=== PATIENT | male | born 1955 | race Two or more races ===

== ENCOUNTER → 2016-08-13 | Outpatient (REF) | payer OTHER | END | disposition home or self-care (01) | LOC: M LAB REF 12:26 | PROVIDERS: ATTEND Internal Medicine | DX: R22.1 Localized swelling, mass and lump, neck (principal) ==

== ENCOUNTER → 2016-10-21 | Outpatient (CLI) | payer OTHER | LOC: M WUC 10:40 | PROVIDERS: ATTEND Nurse Practitioner Family | DX: Z12.5 Encounter for screening for malignant neoplasm of prostate (principal) | CPT/HCPCS: 36415; G0103 ==

== ENCOUNTER → 2017-01-15 | Outpatient (REF) | payer OTHER | LOC: M LABDRAW1 15:51 | PROVIDERS: ATTEND Nurse Practitioner Family | DX: N52.9 Male erectile dysfunction, unspecified (principal) ==

== ENCOUNTER → 2017-01-16 | Outpatient (CLI) | payer BC, OTHER | LOC: M SMT PRO 08:27 | PROVIDERS: ATTEND Urology | DX: N52.9 Male erectile dysfunction, unspecified (principal) ==

== ENCOUNTER → 2017-01-27 | Outpatient (REF) | payer OTHER ==
[2017-01-27 20:16] LABS: FREE T4 1.05 NG/DL (0.76-1.46)
== END ==
LOC: M LABDRAW1 17:24
PROVIDERS: ATTEND Internal Medicine Endocrinology, Diabetes & Metabolism
DX: E06.3 Autoimmune thyroiditis (principal)

== ENCOUNTER → 2017-02-18 | Outpatient (REF) | payer OTHER ==
[2017-02-22 00:07] LABS: TESTOSTERONE %FREE+WEAKLY BOUN 21.3 % (9.0-46.0)
== END ==
LOC: M LAB REF 17:00
PROVIDERS: ATTEND Internal Medicine
DX: R22.1 Localized swelling, mass and lump, neck (principal); E29.1 Testicular hypofunction

== ENCOUNTER → 2017-05-22 | Outpatient (REF) | payer OTHER | LOC: M LAB REF 17:38 | PROVIDERS: ATTEND Internal Medicine | DX: R22.1 Localized swelling, mass and lump, neck (principal); N52.01 Erectile dysfunction due to arterial insufficiency ==

== ENCOUNTER → 2017-08-26 | Outpatient (REF) | payer OTHER ==
[2017-08-26 14:29] LABS: TESTOSTERONE 374 NG/DL (241-827)
== END ==
LOC: M LAB REF 13:46
DX: N52.9 Male erectile dysfunction, unspecified (principal)

== ENCOUNTER → 2017-12-30 | Outpatient (REF) | payer OTHER ==
[2018-01-01 15:42] LABS: TESTOSTERONE 287 NG/DL (241-827)
== END ==
LOC: M LAB REF 13:48
DX: N52.9 Male erectile dysfunction, unspecified (principal)
CPT/HCPCS: 84403

== ENCOUNTER → 2019-01-05 | Outpatient (REF) | payer OTHER ==
[2019-01-05 15:39] LABS: FREE T4 1.14 NG/DL (0.76-1.46); THYROID STIMULATING HORMONE 0.815 uIU/ML (0.358-3.740)
== END ==
LOC: M LABDRAW1 11:22
PROVIDERS: ATTEND Internal Medicine Endocrinology, Diabetes & Metabolism
DX: E06.3 Autoimmune thyroiditis (principal)

== ENCOUNTER → 2019-03-30 | Outpatient (CLI) | payer OTHER | LOC: M WUC 12:09 | PROVIDERS: ATTEND Internal Medicine Cardiovascular Disease | DX: I11.9 Hypertensive heart disease without heart failure (principal) ==

== ENCOUNTER → 2019-07-14 | Outpatient (REF) | payer OTHER | LOC: M LAB REF 13:15 | PROVIDERS: ATTEND Internal Medicine | DX: M10.9 Gout, unspecified (principal) ==

== ENCOUNTER → 2019-10-28 | Outpatient (REF) | payer MEDICARE, OTHER ==
[2019-10-28 16:21] LABS: FREE T4 1.14 NG/DL (0.76-1.46); THYROID STIMULATING HORMONE 1.62 uIU/ML (0.358-3.740)
== END ==
LOC: M LABDRAW1 14:30
PROVIDERS: ATTEND Internal Medicine Endocrinology, Diabetes & Metabolism
DX: E06.3 Autoimmune thyroiditis (principal)

== ENCOUNTER → 2020-09-26 | Outpatient (REF) | payer MEDICARE, OTHER | LOC: M LABSMT 15:09 | PROVIDERS: ATTEND Nurse Practitioner Women's Health | DX: Z12.5 Encounter for screening for malignant neoplasm of prostate (principal) | CPT/HCPCS: 36415; G0103 ==

== ENCOUNTER → 2021-10-04 | Outpatient (CLI) | payer MEDICARE, BC, OTHER | LOC: M PLALAB 13:19 | PROVIDERS: ATTEND Nurse Practitioner Women's Health | DX: Z12.5 Encounter for screening for malignant neoplasm of prostate (principal) | CPT/HCPCS: 36415; G0103 ==

== ENCOUNTER → 2022-07-02 | Outpatient (CLI) | payer MEDICARE, BC, OTHER ==
[~2022-07-02] MED LIST: ACET1TAB55 PO; ACET650T61 PO; ASPI-255 PO; ATOR1TAB19 PO; COQ-100C5 PO; D-50CAP PO; ECOT81TA5 PO; GLIP5TAB20 PO; JARD1TAB3 PO; LEVO150T7 PO; LOSA100T45 PO; METF-838 PO; SYNT175T2 PO
[2022-07-02 17:46] LABS: HEMATOCRIT 46.3 % (42.0-52.0); MEAN CORPUSCULAR HEMOGLOBIN 29.9 pg (27.0-33.0); MEAN CORPUSCULAR HGB CONC 32.4 g/dl (32.0-36.5); MEAN CORPUSCULAR VOLUME 92.4 fl (80.0-96.0); PLATELET COUNT, AUTOMATED 144 10^3/uL (150-450); RED BLOOD COUNT 5.01 10^6/uL (4.30-6.10); WHITE BLOOD COUNT 6.2 10^3/uL (4.0-10.0)
[2022-07-02 18:12] LABS: CARBON DIOXIDE LEVEL 26 MMOL/L (20-31); CHLORIDE LEVEL 103 MMOL/L (98-107); SODIUM LEVEL 140 MMOL/L (136-145)
[2022-07-02 18:17] LABS: CALCIUM LEVEL 9.9 MG/DL (8.3-10.6)
[2022-07-02 18:18] LABS: BLOOD UREA NITROGEN 17 MG/DL (9-23); GLUCOSE, FASTING 230 MG/DL (74-106)
[2022-07-02 18:20] LABS: CREATININE FOR GFR 0.91 MG/DL (0.70-1.30); GLOMERULAR FILTRATION RATE > 60.0 (>49)
[2022-07-02 18:21] LABS: POTASSIUM SERUM 4.3 MMOL/L (3.5-5.1)
== END ==
LOC: M WUC 11:03
PROVIDERS: ATTEND Internal Medicine
DX: I44.2 Atrioventricular block, complete (principal)

== ENCOUNTER → 2022-07-03 | Outpatient (CLI) | payer MEDICARE, BC, OTHER | LOC: M LABSMTC 09:17 | PROVIDERS: ATTEND Anesthesiology | DX: Z01.818 Encounter for other preprocedural examination (principal); Z11.52 Encounter for screening for COVID-19 ==

== ENCOUNTER 2022-07-04 12:55 | Day surgery (SDC) | payer MEDICARE, BC, OTHER ==
[2022-07-04] VITALS (7 sets, daily range): BP systolic 127–155; BP diastolic 75–84
[~2022-07-04] VITALS: Ht 172.7 cm; Wt 127.1 kg
[~2022-07-04 12:55] MED LIST changes: -ECOT81TA5 PO; +ceFAZolin SOD 2 GM in IV 1 EA IV ONE
[2022-07-04] MEDS ORDERED: ECOT81TA5 PO (13:50)
[2022-07-04] MEDS ORDERED: LR 1,000 ML IV SCH ×2 (14:00→16:45)
[2022-07-04] MEDS ORDERED: LIDOCAINE 1% SDV 30ML VIAL As Ordered ONE (14:40)
[2022-07-04] MEDS ORDERED: AMIODARONE HCL 360 MG/200 ML PREMIXED BAG (NEXTERONE) As Ordered ONE (14:40)
[2022-07-04] MEDS ORDERED: ISOVUE-300 61% 50ML VIAL As Ordered ONE (14:40)
[2022-07-04] MEDS ORDERED: fentaNYL 100 MCG/2 ML INJECTION As Ordered ONE (15:07)
[2022-07-04] MEDS ORDERED: MIDAZOLAM INJ 2MG/2ML VIAL (J2250 PER 1MG) As Ordered ONE (15:07)
[2022-07-04] MEDS ORDERED: propofoL 200 MG/20 ML VIAL As Ordered ONE (15:08)
[2022-07-04] MEDS ORDERED: ONDANSETRON 4MG 2ML VIAL As Ordered ONE (16:14)
[2022-07-04] MEDS ORDERED: traMADol 50 MG TAB PO PRN (16:40)
[2022-07-04] MEDS ORDERED: ONDANSETRON 4MG 2ML VIAL IV PRN (16:45)
[2022-07-04] MEDS ORDERED: oxyCODONE 5MG TAB PO PRN (16:45)
[2022-07-04] MEDS ORDERED: fentaNYL 100 MCG/2 ML INJECTION IV PRN (16:45)
[2022-07-04] MEDS: metFORMIN XR 500MG TAB *GLUCOPHAGE XR PO SCH (22:09)
[2022-07-04] MEDS: ceFAZolin SOD 1 GM in D5W MINI-BAG PLUS 50 ML IV SCH (23:48)
[2022-07-05] VITALS: BP 157/89
[2022-07-05 04:00] VITALS: BP 134/85
[2022-07-05] MEDS ORDERED: LEVOTHYROXINE 150MCG TABLET (0.15MG) PO SCH (06:00)
[2022-07-05] MEDS: ceFAZolin SOD 1 GM in D5W MINI-BAG PLUS 50 ML IV SCH ×2 (06:32→14:03)
[2022-07-05 08:00] VITALS: BP 139/83
[2022-07-05] MEDS ORDERED: LOSARTAN 50MG TABLET PO SCH (09:00)
[2022-07-05] MEDS ORDERED: glipiZIDE XL 5 MG TABCR PO SCH (09:00)
[2022-07-05] MEDS ORDERED: ACETAMINOPHEN 650MG ER TAB (TYLENOL ARTHRITIS) PO SCH (09:00)
[2022-07-05] MEDS: metFORMIN XR 500MG TAB *GLUCOPHAGE XR PO SCH (09:26)
[2022-07-05 09:27] VITALS: BP 139/83
[2022-07-05 11:56] VITALS: BP 153/89
[2022-07-05 16:00] VITALS: BP 128/67
== END 2022-07-05 17:17 | disposition home or self-care (01) ==
LOC: M SDC 12:55 → M PCU 17:22 → UNDOADMIN 17:22 → M SDC 07-05 17:16 → M PCU 07-05 17:16 → M SDC 07-05 17:17 → UNDODISIN 07-05 17:17
PROVIDERS: ATTEND Internal Medicine Cardiovascular Disease
DX: I44.2 Atrioventricular block, complete (principal); I45.3 Trifascicular block; E66.9 Obesity, unspecified; Z68.35 Body mass index [BMI] 35.0-35.9, adult; I11.9 Hypertensive heart disease without heart failure; E78.00 Pure hypercholesterolemia, unspecified; G47.33 Obstructive sleep apnea (adult) (pediatric); E03.9 Hypothyroidism, unspecified; E11.9 Type 2 diabetes mellitus without complications; J32.9 Chronic sinusitis, unspecified; K76.9 Liver disease, unspecified; Z87.891 Personal history of nicotine dependence; Z79.84 Long term (current) use of oral hypoglycemic drugs; Z79.82 Long term (current) use of aspirin; Z79.890 Hormone replacement therapy; Z79.899 Other long term (current) drug therapy; Z88.8 Allergy status to other drugs, medicaments and biological substances
CPT/HCPCS: 33208; 71045; 71046; 76000; 93005; 96374; 96376; C1785; C1898; J0690; J2250; J2405; J3010

== ENCOUNTER → 2022-10-22 | Outpatient (REF) | payer MEDICARE, BC, OTHER ==
[~2022-10-22] MED LIST changes: +ECOT81TA5 PO; -ceFAZolin SOD 2 GM in IV 1 EA IV ONE
== END ==
LOC: M LAB REF 12:09
PROVIDERS: ATTEND Internal Medicine
DX: M25.50 Pain in unspecified joint (principal)

== ENCOUNTER → 2022-10-25 | Outpatient (CLI) | payer MEDICARE, BC, OTHER | LOC: M RAD 16:57 | PROVIDERS: ATTEND Internal Medicine Cardiovascular Disease | DX: T82.110A Breakdown (mechanical) of cardiac electrode, initial encounter (principal); Y83.1 Surgical operation with implant of artificial internal device as the cause of abnormal reaction of the patient, or of later complication, without mention of misadventure at the time of the procedure ==

== ENCOUNTER → 2023-09-26 | Outpatient (CLI) | payer MEDICARE, BC, OTHER ==
[~2023-09-26] MED LIST changes: -LOSA100T45 PO; +LOSA100T46 PO
== END ==
LOC: M PLAIMG 09:24
PROVIDERS: ATTEND Physician Assistant
DX: I77.810 Thoracic aortic ectasia (principal)

== ENCOUNTER 2023-12-28 02:08 | Emergency (ER) | payer MEDICARE, OTHER ==
[~2023-12-28] VITALS: Ht 175.3 cm; Wt 106.9 kg
[2023-12-28] MEDS ORDERED: TIRZ2.5P SQ (02:33)
[2023-12-28] MEDS ORDERED: FLON1SPR NARES (02:38)
[2023-12-28] MEDS ORDERED: AZEL1SPR3 NARES (02:38)
[2023-12-28 02:51] LABS: BASO # 0.1 10^3/uL (0.0-0.2); BASO % 1.4 % (0.0-1.0); EOS # 0.4 10^3/uL (0.0-0.5); HEMOGLOBIN 15.6 g/dl (13.5-17.5); LYMPH # 2.3 10^3/uL (1.5-5.0); LYMPH % 35.5 % (24.0-44.0); MEAN CORPUSCULAR HEMOGLOBIN 30.1 pg (27.0-33.0); MEAN CORPUSCULAR HGB CONC 33.9 g/dl (32.0-36.5); MEAN CORPUSCULAR VOLUME 88.6 fl (80.0-96.0); MONO # 0.7 10^3/uL (0.0-0.8); MONO % 10.4 % (2.0-8.0); NEUTROPHILS # 2.9 10^3/uL (1.5-8.5); NEUTROPHILS % 46.4 % (36.0-66.0); PLATELET COUNT, AUTOMATED 160 10^3/uL (150-450); RED BLOOD COUNT 5.19 10^6/uL (4.30-6.10); WHITE BLOOD COUNT 6.3 10^3/uL (4.0-10.0)
[2023-12-28 03:03] LABS: INR 0.98; PROTHROMBIN TIME 12.7 SECONDS (12.5-14.5)
[2023-12-28 03:09] LABS: LIPASE 61 U/L (12-53)
[2023-12-28 03:12] LABS: ALBUMIN 4.1 G/DL (3.2-5.2); ALKALINE PHOSPHATASE 99 U/L (46-116); ALT/SGPT 57 U/L (7.0-40); AST/SGOT 37 U/L (<34); BILIRUBIN,DIRECT 0.4 MG/DL (<0.4); BILIRUBIN,TOTAL 0.9 MG/DL (0.3-1.2); BLOOD UREA NITROGEN 21 MG/DL (9-23); CALCIUM LEVEL 9.7 MG/DL (8.3-10.6); CARBON DIOXIDE LEVEL 26 MMOL/L (20-31); CHLORIDE LEVEL 104 MMOL/L (98-107); CK-MB VALUE MASS 3.3 NG/ML (<3.6); CREATININE FOR GFR 0.98 MG/DL (0.70-1.30); GLOMERULAR FILTRATION RATE > 60.0 (>49); GLUCOSE, FASTING 149 MG/DL (74-106); SODIUM LEVEL 138 MMOL/L (136-145); TOTAL PROTEIN 7.2 G/DL (5.7-8.2)
[2023-12-28 03:15] LABS: CPK CREATINE PHOSPHOKINASE 242 U/L (46-171); MB/CK RELATIVE INDEX 1.36 (< OR =4)
[2023-12-28] MEDS: NITROGLYCERIN 0.4MG SUBL TABLET SL STA (04:16)
[2023-12-28 04:18] LABS: CK-MB VALUE MASS 2.9 NG/ML (<3.6)
[2023-12-28] MEDS: KETOROLAC 30 MG/ML 1ML VIAL IV ONE (04:33)
[2023-12-28 04:43] LABS: MB/CK RELATIVE INDEX 1.4 (< OR =4)
[2023-12-28] MEDS ORDERED: ISOVUE-370 76% 100ML VIAL As Ordered ONE (05:12)
[2023-12-28 06:04] LABS: CK-MB VALUE MASS 4.7 NG/ML (<3.6)
[2023-12-28 06:09] LABS: MB/CK RELATIVE INDEX 2.31 (< OR =4)
[2023-12-28] MEDS: HEPARIN DRIP 25,000 UNITS in IV 1 EA IV SCH (06:48)
[2023-12-28] MEDS: ASPIRIN 81MG CHEW TABLET PO ONE (07:07)
[2023-12-28 08:28] VITALS: BP 149/92; TEMP 96.1; O2SAT 97
== END 2023-12-28 08:33 | disposition short-term general hospital (02) ==
LOC: M ED 02:08
DX: I21.4 Non-ST elevation (NSTEMI) myocardial infarction (principal); E11.9 Type 2 diabetes mellitus without complications; I10 Essential (primary) hypertension; E78.5 Hyperlipidemia, unspecified; E03.9 Hypothyroidism, unspecified; F10.10 Alcohol abuse, uncomplicated; Z88.8 Allergy status to other drugs, medicaments and biological substances; Z79.1 Long term (current) use of non-steroidal anti-inflammatories (NSAID); Z79.84 Long term (current) use of oral hypoglycemic drugs; Z79.899 Other long term (current) drug therapy
CPT/HCPCS: 71045; 71275; 80047; 80048; 80076; 82550; 82553; 83690; 84484; 85025; 85610; 85730; 93005; 96365; 96366; 96374; 99285; J1885; Q9967

== ENCOUNTER → 2024-01-05 | Outpatient (REF) | payer MEDICARE, OTHER ==
[~2024-01-05] MED LIST changes: +AZEL1SPR3 NARES; +FLON1SPR NARES; +TIRZ2.5P SQ
[2024-01-05 12:32] LABS: INR 1.01
== END ==
LOC: M LAB REF 11:57
PROVIDERS: ATTEND Internal Medicine
DX: K76.0 Fatty (change of) liver, not elsewhere classified (principal)

== ENCOUNTER → 2024-03-19 | Outpatient (REF) | payer MEDICARE, OTHER | LOC: M LAB REF 12:08 | PROVIDERS: ATTEND Internal Medicine | DX: K76.0 Fatty (change of) liver, not elsewhere classified (principal) ==

== ENCOUNTER → 2024-08-17 | Outpatient (REF) | payer MEDICARE, OTHER ==
[2024-08-17 13:20] LABS: INR 0.98; PARTIAL THROMBOPLASTIN TIME 34.4 SECONDS (24.8-34.2); PROTHROMBIN TIME 13.3 SECONDS (12.5-14.5)
== END ==
LOC: M LAB REF 12:01
PROVIDERS: ATTEND Internal Medicine
DX: K76.0 Fatty (change of) liver, not elsewhere classified (principal)

== ENCOUNTER → 2024-12-17 | Outpatient (CLI) | payer MEDICARE, BC ==
[~2024-12-17] MED LIST changes: +GLIP-318 PO; -GLIP5TAB20 PO
== END ==
LOC: M RAD 10:08
PROVIDERS: ATTEND Internal Medicine
DX: K76.0 Fatty (change of) liver, not elsewhere classified (principal)

== ENCOUNTER → 2025-02-16 | Outpatient (CLI) | payer MEDICARE, BC | LOC: M SOG 07:09 | PROVIDERS: ATTEND Orthopaedic Surgery | DX: M25.551 Pain in right hip (principal); M54.50 Low back pain, unspecified ==

== ENCOUNTER → 2025-03-01 | Outpatient (REF) | payer MEDICARE, BC ==
[2025-03-01 12:08] LABS: INR 0.97
== END ==
LOC: M LAB REF 11:50
PROVIDERS: ATTEND Internal Medicine
DX: K76.0 Fatty (change of) liver, not elsewhere classified (principal)

== ENCOUNTER → 2025-06-15 | Outpatient (CLI) | payer MEDICARE, BC | LOC: M RAD 06:45 | PROVIDERS: ATTEND Orthopaedic Surgery | DX: M19.90 Unspecified osteoarthritis, unspecified site (principal) ==

== ENCOUNTER → 2025-07-25 | Outpatient (CLI) | payer MEDICARE, BC ==
[~2025-07-25] MED LIST changes: +ISOVUE-370 76% 100 ML VIAL ONE
== END ==
LOC: M PLAIMG 12:37
PROVIDERS: ATTEND Internal Medicine
DX: M54.2 Cervicalgia (principal); Z80.7 Family history of other malignant neoplasms of lymphoid, hematopoietic and related tissues
CPT/HCPCS: 70491; Q9967